=== PATIENT | male | born 1940 | race Caucasian/White ===

== ENCOUNTER 2023-05-02 15:38 | Emergency (ER) | payer MEDICARE, BC ==
[2023-05-02] MEDS ORDERED: Sodium Chloride 0.9% 10 ML Syringe FLUSH PRN (15:45)
[2023-05-02 15:55] LABS: BASOPHILS PERCENT AUTO 0.2 % (0.2-1.2); EOSINOPHILS ABSOLUTE AUTO 0.1 x10^3/uL (0.0-0.5); EOSINOPHILS PERCENT AUTO 0.9 % (0.0-4.0); HEMATOCRIT 45.2 % (40.0-52.0); HEMOGLOBIN 15.4 g/dL (14.0-18.0); IMMATURE GRAN ABSOLUTE AUTO 0.02 x10^3/uL (0.00-0.07); LYMPHOCYTES ABSOLUTE AUTO 1.4 x10^3/uL (1.0-4.8); LYMPHOCYTES PERCENT AUTO 15.5 % (25.0-50.0); MEAN CORPUSCULAR HEMOGLOBIN 33.3 pg (26.0-32.0); MEAN CORPUSCULAR HGB CONC 34.1 g/dL (32.0-36.0); MEAN CORPUSCULAR VOLUME 97.6 fL (78.0-93.0); MONOCYTES ABSOLUTE AUTO 0.9 x10^3/uL (0.0-0.8); MONOCYTES PERCENT AUTO 10.1 % (2.0-11.0); NEUTROPHILS ABSOLUTE AUTO 6.8 x10^3/uL (1.8-7.7); NEUTROPHILS PERCENT AUTO 73.1 % (50.0-80.0); PLATELET COUNT,PLT 172 x10^3/uL (130-400); RED BLOOD CELL COUNT 4.63 x10^6/uL (4.5-6.0); WHITE BLOOD CELL COUNT,WBC 9.3 x10^3/uL (4.0-10.0)
[2023-05-02 16:12] LABS: PROTHROMBIN TIME 10.9 SEC (9.5-12.2); PTT,PARTIAL THROMBOPLSTIN TIME 26.9 SEC (23.6-33.6)
[2023-05-02 16:19] LABS: A/G RATIO 0.77; ALANINE AMINOTRANSFERASE,ALT 23 U/L (16-63); ALBUMIN 3.3 g/dL (3.4-5.0); ALKALINE PHOSPHATASE 76 U/L (46-116); ASPARTATE AMNIOTRANSFERASE,AST 21 U/L (15-37); BILIRUBIN TOTAL 0.8 mg/dL (0.2-1.0); BLOOD UREA NITROGEN,BUN 16 mg/dL (7-18); CALCIUM 8.9 mg/dL (8.5-10.1); CARBON DIOXIDE,CO2 32 mmol/L (21-32); CHLORIDE,CL 102 mmol/L (98-107); GLUCOSE RANDOM 131 mg/dL (70-99); POTASSIUM,K 3.4 mmol/L (3.5-5.1); PROTEIN TOTAL,TP 7.6 g/dL (6.4-8.2); SODIUM,NA 143 mmol/L (136-145)
[2023-05-02 16:23] LABS: ANION GAP 12.4 mmol/L (5-15); ESTIMATED GFR 76 mL/min (>=60)
== END 2023-05-02 18:23 | disposition short-term general hospital (02) ==
LOC: VM.ED 15:38
DX: G45.9 Transient cerebral ischemic attack, unspecified (principal); I48.91 Unspecified atrial fibrillation; E78.00 Pure hypercholesterolemia, unspecified; I10 Essential (primary) hypertension; K21.9 Gastro-esophageal reflux disease without esophagitis; Z79.899 Other long term (current) drug therapy; Z88.8 Allergy status to other drugs, medicaments and biological substances
CPT/HCPCS: 70450; 71046; 80053; 83605; 84145; 84484; 85025; 85610; 85730; 93005; 93010; 99284; 99285

== ENCOUNTER 2024-12-08 10:31 | Emergency (ER) | payer MEDICARE, BC | END 2024-12-08 11:51 | disposition home or self-care (01) | LOC: VM.ED 10:31 → SUPCPDRO 10:31 → VM.ED 11:51 | DX: M25.462 Effusion, left knee (principal); I10 Essential (primary) hypertension; E78.00 Pure hypercholesterolemia, unspecified; K21.9 Gastro-esophageal reflux disease without esophagitis; Z88.8 Allergy status to other drugs, medicaments and biological substances; Z79.899 Other long term (current) drug therapy | CPT/HCPCS: 73560-LT; 99283 ==